=== PATIENT | male | born 1995 | race Two or more races ===

== ENCOUNTER 2023-06-08 09:56 | Emergency (ER) | payer SELFPAY ==
[~2023-06-08] VITALS: Ht 188 cm; Wt 97.4 kg
[2023-06-08 10:27] LABS: Basophils # (auto) 0 10 ^3/uL (0-0.2); Basophils % (auto) 0.4 % (0.0-2.0); Eosinophils # (auto) 0 10 ^3/uL (0-0.8); Eosinophils % (auto) 0.1 % (0.0-7.0); Hematocrit 49.4 % (41.0-53.0); Hemoglobin 17.2 g/dL (13.5-17.5); Lymphocytes # (auto) 0.9 10 ^3/uL (0.4-5.4); Lymphocytes % (auto) 7.2 % (10.0-50.0); Mean Corpuscular Hgb Conc. 34.7 g/dL (32.0-36.0); Mean Corpuscular Volume 92.2 fL (80.0-100.0); Monocytes # (auto) 0.5 10 ^3/uL (0-1.3); Monocytes % (auto) 4.1 % (0.0-12.0); Neutrophils # (auto) 11.4 10 ^3/uL (1.6-8.6); Neutrophils % (auto) 88.2 % (37.0-80.0); Nucleated Red Blood Cells % 0.1 %; Red Blood Cells 5.37 10^6/uL (4.5-5.90)
[2023-06-08 10:42] VITALS: BP 125/78; PULSE 59; RESP 17; TEMP 97.9; O2SAT 99
[2023-06-08 10:42] LABS: Alanine Aminotransferase 36 U/L (7-40); Albumin 5.2 g/dL (3.2-4.8); Alkaline Phosphatase 70 U/L (46-116); Anion Gap 8 (5-15); Aspartate Aminotransferase 25 U/L (13-40); BUN/Creatinine Ratio 11.4 (10.0-20.0); Bilirubin, Total 1.3 mg/dL (0.2-1.0); Blood Urea Nitrogen 10 mg/dL (9-23); Calcium 10.3 mg/dL (8.7-10.4); Carbon Dioxide 25 mmol/L (20-30); Chloride 106 mmol/L (98-107); Glucose 135 mg/dL (74-106); Potassium 3.6 mmol/L (3.5-5.1); Sodium 139 mmol/L (136-145)
[2023-06-08] MEDS ORDERED: PANTOPRAZOLE 40 MG/10 ML VIAL INJ IV ONE (10:45)
[2023-06-08] MEDS ORDERED: SODIUM CHLORIDE 0.9% 1,000 ML IVB ONE (10:45)
[2023-06-08] MEDS ORDERED: PROCHLORPERAZINE EDISYLATE 5 MG/ML 2ML VIAL IV ONE (10:45)
[2023-06-08] MEDS ORDERED: ZOFR4T PO (12:15)
[2023-06-08] MEDS ORDERED: PANT40TA2 PO (12:15)
== END 2023-06-08 12:22 | disposition home or self-care (01) ==
LOC: ER 09:56
DX: R11.2 Nausea with vomiting, unspecified (principal)
CPT/HCPCS: 36415; 74176; 80053; 83690; 85025; 96361; 96374; 96375; 99285; C9113; J0780; J7030

== ENCOUNTER 2024-12-13 13:15 | Emergency (ER) | payer BC ==
[~2024-12-13] VITALS: Ht 188 cm; Wt 84.1 kg
[~2024-12-13 13:15] MED LIST: PANT40TA2 PO; ZOFR4T PO
--- NOTE | 2024-12-13 13:30 | ED.PDOC ---
HPI Comments 29 year old male presents to the ED with a chief complaint of chest pain onset 2 days. Patient states he began experiencing LT sided chest pain two days ago, yesterday experienced nausea/vomiting which resolved today. Patient also noticed shortness of breath, chest pain worsens with deep breaths. Patient took pre- workout on Thursday, has not since. Denies any PMHx as well as headache, dizziness, abdominal pain, dysuria, hematuria, fever, chills. No other symptoms or modifying factors present at this time. Chief Complaint: Chest Pain Time Seen by MD: 13:22 Primary Care Provider: NONE Reviewed Notes: Medications, Allergies Allergies: Coded Allergies: No Known Drug Allergy (Verified Allergy, Unknown, 06/08/23) Home Meds Active Scripts Pantoprazole Sodium Sesquihydr (Protonix) 40 Mg Tab, 40 MG PO DAILY, #30 TAB Prov:REA CALDERON MD 06/08/23 Ondansetron Odt 4MG Tab (ZOFRAN PO) 4 Mg Tb, 4 MG PO Q8HP PRN for 5 Days, #15 TAB ODT TAB-DISSOLVE IN MOUTH, THEN SWALLOW Prov:REA CALDERON MD 06/08/23 Information Source: Patient Mode of Arrival: Ambulatory Severity: Moderate Timing: Days Duration: Since onset Prehospital treatment: None Location: Chest (L) Radiation: No Radiation Quality: Sharp, Pressure Onset: At Rest Cardiac Risk Factors: None PE Risk Factors: None History of: None Modifying Factors: Nothing Associated Signs and Symptoms: SOB, N/V Past Medical History PAST MEDICAL HISTORY: Denies Surgical History: Denies all surgeries Family History Family History: Reviewed,noncontributory to illness Social History Smoker: Non-Smoker Alcohol: Denies ETOH Use Drugs: Denies Drug Use Lives In: Home Constitutional: denies: chills, diaphoresis, fatigue, fever, malaise, sweats, weakness, others EENTM: denies: blurred vision, double vision, ear bleeding, ear discharge, ear drainage, ear pain, ear ringing, eye pain, eye redness, hearing loss, mouth pain, mouth swelling, nasal discharge, nose bleeding, nose congestion, nose pain, photophobia, tearing, throat pain, throat swelling, voice changes, others Respiratory: reports: shortness of breath; denies: cough, hemoptysis, orthopnea, SOB at rest, SOB with excertion, stridor, wheezing, others Cardiovascular: reports: chest pain; denies: dizzy spells, diaphoresis, Dyspnea on exertion, edema, irregular heart beat, left arm pain, lightheadedness, palpitations, PND, syncope, others Gastrointestinal: reports: nausea, vomiting; denies: abdomen distended, abdominal pain, blood streaked bowels, constipated, diarrhea, dysphagia, difficulty swallowing, hematemesis, melena, poor appetite, poor fluid intake, rectal bleeding, rectal pain, others Genitourinary: denies: burning, dysuria, flank pain, frequency, hematuria, incontinence, penile discharge, penile sore, pain, testicle pain, testicle swelling, urgency, others Neurological: denies: dizziness, fainting, headache, left sided numbness, left sided weakness, numbness, paresthesia, pre-existing deficit, right sided numbness, right sided weakness, seizure, speech problems, tingling, tremors, weakness, others Musculoskeletal: denies: back pain, gout, joint pain, joint swelling, muscle pain, muscle stiffness, neck pain, others Integumetry: denies: bruises, change in color, change in hair/nails, dryness, laceration, lesions, lumps, rash, wounds, others Allergic/Immunocompromised: denies: Difficulty Healing, Frequent Infections, Hives, Itching, others Hematologic/Lymphatic: denies: anemia, blood clots, easy bleeding, easy bruisi ng, swollen glands, others Endocrine: denies: excessive hunger, excessive sweating, excessive thirst, exce ssive urination, flushing, intolerance to cold, intolerance to heat, unexplained weight gain, unexplained weight loss, others Psychiatric: denies: anxiety, bipolar disorder, depression, hopeless, panic disorder, schizophrenia, sleepless, suicidal, others All Other Systems: Reviewed and Negative Physical Exam General Appearance: No Apparent Distress, Normal HEENT: Normal ENT Inspection, Pharynx Normal, TMs Normal Neck: Full Range of Motion, Non-Tender, Normal, Normal Inspection Respiratory: Chest Non-Tender, Lungs Clear, No Accessory Muscle Use, No Respiratory Distress, Normal Breath Sounds Cardiovascular: No Edema, No JVD, No Murmur, No Gallop, Normal Peripheral Pulses, Regular Rate/Rhythm Breast Exam: Deferred Gastrointestinal: No Organomegaly, Non Tender, No Pulsatile Mass, Normal Bowel Sounds, Soft Genitalia: Deferred Pelvic: Deferred Rectal: Deferred Extremities: No calf tenderness, Normal capillary refill, Normal inspection, Normal range of motion, Non-tender, No pedal edema Musculoskeletal : Apperance: Normal Neurologic: Alert, transformer coil winder II-XII nml as Tested, No Motor Deficits, Normal Affect, Normal Mood, No Sensory Deficits Cerebellar Function: Normal Reflexes: Normal Skin: Dry, Normal Color, Warm Lymphatic: No Adenopathy Was a procedure done? Was a procedure done?: No CP Differential Dx Differential Diagnosis: DE, PAC's Differential Diagnosis: HTN Essential, HTN Accelerated Differential Diagnosis: Gastritis, Myocardial Infarction X-Ray, Labs, Meds, VS Vital Signs Date Time Temp Pulse Resp B/P (MAP) Pulse Ox O2 Delivery O2 Flow Rate FiO2 12/13/24 14:27 71 12/13/24 13:25 98.9 83 17 138/82 (100) 96 98.9 12/13/24 13:20 83 Lab Test 12/13/24 16:22 12/13/24 14:16 12/13/24 13:23 Range/Units Troponin I High Sensitivity Pending 6 6 </=54 ng/L White Blood Count 11.4 H 4.4-10.8 10^3/uL Red Blood Count 5.25 4.5-5.90 10^6/uL Hemoglobin 16.5 13.5-17.5 g/dL Hematocrit 49.7 41.0-53.0 % Mean Corpuscular Volume 94.6 80.0-100.0 fL Mean Corpuscular Hemoglobin 31.5 28.0-32.0 pg Mean Corpuscular Hemoglobin Concent 33.3 32.0-36.0 g/dL Red Cell Distribution Width 13.5 11.8-14.3 % Platelet Count 312 140-450 10^3/uL Mean Platelet Volume 7.9 6.9-10.8 fL Neutrophils (%) (Auto) 77.8 37.0-80.0 % Lymphocytes (%) (Auto) 14.0 10.0-50.0 % Monocytes (%) (Auto) 7.7 0.0-12.0 % Eosinophils (%) (Auto) 0.3 0.0-7.0 % Basophils (%) (Auto) 0.2 0.0-2.0 % Neutrophils # (Auto) 8.9 H 1.6-8.6 10 ^3/uL Lymphocytes # (Auto) 1.6 0.4-5.4 10 ^3/uL Monocytes # (Auto) 0.9 0-1.3 10 ^3/uL Eosinophils # (Auto) 0 0-0.8 10 ^3/uL Basophils # (Auto) 0 0-0.2 10 ^3/uL Nucleated Red Blood Cells 0.1 % Sodium Level 136 136-145 mmol/L Potassium Level 3.5 3.5-5.1 mmol/L Chloride Level 103 98-107 mmol/L Carbon Dioxide Level 23 20-31 mmol/L Anion Gap 10 5-15 Blood Urea Nitrogen 18 9-23 mg/dL Creatinine 1.00 0.700-1.30 mg/dL Glomerular Filtration Rate Calc 106 >90 mL/min BUN/Creatinine Ratio 18.0 10.0-20.0 Serum Glucose 85 74-106 mg/dL Calcium Level 9.1 8.7-10.4 mg/dL Time of 1ST Reevaluation: 13:55 Reevaluation 1ST: Unchanged Patient Education/Counseling: Diagnosis, Treatment, Prognosis Family Education/Counseling: No Family Present Additional Information The following tests were ordered, and results were reviewed by me: TROP -x3, EKG -x3 I discussed treatment and results with medical personnel and: Patient Comprehensive systems review obtained and negative except for what is stated in the HPI. Departure 1 Departure Time of Disposition: 16:53 (Patient presented with chest pain that was concerning for possible STEMI, ACS, PE, Pneumonia, Muscle Strain, COPD, Dissection. Data: 1. I ordered and reviewed the result of at least 3 labs including a CBC, BMP, and Troponin. 2. I independently interpreted the following tests: EKG which shows normal sinus rhythm and Chest X-ray which shows a benign chest.Risk:This patient presented with a high risk of morbidity due to further diagnostic testing or treatment and may suffer from an acute cardiac or respiratory disorder. After review of all the data patient is unlikely to have a pe , dissection, and is low risk for acs. Patient is stable at this time.Workup so far is benign and patient will be discharged with outpatient followup. ) Impression: Primary Impression: Acute chest pain Disposition: 01 HOME / SELF CARE / HOMELESS Condition: Stable Additional Instructions: You presented today with chest pain. Your workup today was benign including labs, troponin, EKG, chest x-ray. Your pain may be from musculoskeletal strain, acid reflux, anxiety, or many other factors. It is important to follow up with your regular doctor within 1 week. If your symptoms worsen or you have any other concerns please return to the emergency room. Discharged With: Self Critical Care Note Critical Care Time?: No Stability Stability form required: No Heart Score Heart Score: Heart Score Response (Comments) Value History Slightly Suspicious 0 EKG Normal 0 Age <45 0 Risk Factors No known risk factors 0 Troponin Normal limit 0 Total 0 I personally scribed for BRANT DELUNA MD ([email or web address]) on 12/13/24 at 13:30. Electronically submitted by Tricia Dominguez ([email or web address]). I personally scribed for BRANT DELUNA MD ([email or web address]) on 12/13/24 at 13:33. Electronically submitted by Tricia Dominguez ([email or web address]). BRANT DELUNA MD Dec 13, 2024 13:30
--- NOTE | 2024-12-13 14:12 | DVH ---
EXAM: XY CHEST PORTABLE TECHNIQUE: Single frontal chest radiograph CLINICAL HISTORY: chest pain COMPARISON: None Findings/Impression: Frontal chest radiograph demonstrates no acute osseous or superficial soft tissue abnormalities. The trachea is midline. The cardiac silhouette and mediastinum are within normal limits. No pneumothorax, pleural effusions, or consolidations.
--- NOTE | 2024-12-13 14:15 | ECG ---
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
[2024-12-13 14:59] LABS: Chloride 103 mmol/L (98-107); Sodium 136 mmol/L (136-145)
[2024-12-13 15:00] LABS: Anion Gap 10 (5-15); Carbon Dioxide 23 mmol/L (20-31)
[2024-12-13 15:01] LABS: Calcium 9.1 mg/dL (8.7-10.4); Potassium 3.5 mmol/L (3.5-5.1)
[2024-12-13 15:02] LABS: Basophils # (auto) 0 10 ^3/uL (0-0.2); Basophils % (auto) 0.2 % (0.0-2.0); Eosinophils # (auto) 0 10 ^3/uL (0-0.8); Eosinophils % (auto) 0.3 % (0.0-7.0); Hematocrit 49.7 % (41.0-53.0); Hemoglobin 16.5 g/dL (13.5-17.5); Lymphocytes # (auto) 1.6 10 ^3/uL (0.4-5.4); Mean Corpuscular Hemoglobin 31.5 pg (28.0-32.0); Mean Corpuscular Hgb Conc. 33.3 g/dL (32.0-36.0); Mean Corpuscular Volume 94.6 fL (80.0-100.0); Monocytes # (auto) 0.9 10 ^3/uL (0-1.3); Monocytes % (auto) 7.7 % (0.0-12.0); Neutrophils # (auto) 8.9 10 ^3/uL (1.6-8.6); Neutrophils % (auto) 77.8 % (37.0-80.0); Nucleated Red Blood Cells % 0.1 %; Platelet Count (auto) 312 10^3/uL (140-450); Red Blood Cells 5.25 10^6/uL (4.5-5.90); Red Cell Distribution Width 13.5 % (11.8-14.3); White Blood Cell 11.4 10^3/uL (4.4-10.8)
[2024-12-13 15:05] LABS: Blood Urea Nitrogen 18 mg/dL (9-23); Glucose 85 mg/dL (74-106)
[2024-12-13 16:57] VITALS: BP 133/78; TEMP 97.9
[2024-12-13 17:14] VITALS: PULSE 83; RESP 17; O2SAT 96
--- NOTE | 2024-12-13 19:01 | ECG ---
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
== END 2024-12-13 17:14 | disposition home or self-care (01) ==
LOC: ER 13:15
DX: R07.89 Other chest pain (principal); R11.2 Nausea with vomiting, unspecified; R06.02 Shortness of breath; Z79.899 Other long term (current) drug therapy
CPT/HCPCS: 36415; 71045; 80048; 84484; 85025; 93005

== ENCOUNTER 2024-12-14 05:20 | Inpatient (IN) | payer BC ==
[~2024-12-14] VITALS: Ht 188 cm; Wt 85.2 kg
[2024-12-14] MEDS ORDERED: ASPirin 81 mg TAB PO ONE (05:30)
[2024-12-14 05:59] LABS: Basophils # (auto) 0.1 10 ^3/uL (0-0.2); Eosinophils # (auto) 0.1 10 ^3/uL (0-0.8); Eosinophils % (auto) 0.8 % (0.0-7.0); Hematocrit 47.8 % (41.0-53.0); Lymphocytes # (auto) 1.6 10 ^3/uL (0.4-5.4); Lymphocytes % (auto) 21.8 % (10.0-50.0); Mean Corpuscular Hemoglobin 33.3 pg (28.0-32.0); Mean Corpuscular Hgb Conc. 35.6 g/dL (32.0-36.0); Mean Corpuscular Volume 93.8 fL (80.0-100.0); Monocytes # (auto) 0.6 10 ^3/uL (0-1.3); Monocytes % (auto) 8.9 % (0.0-12.0); Neutrophils # (auto) 4.9 10 ^3/uL (1.6-8.6); Neutrophils % (auto) 67.5 % (37.0-80.0); Nucleated Red Blood Cells % 0.1 %; Platelet Count (auto) 313 10^3/uL (140-450); Red Cell Distribution Width 13.7 % (11.8-14.3); White Blood Cell 7.2 10^3/uL (4.4-10.8)
[2024-12-14 06:18] LABS: Albumin 4.6 g/dL (3.2-4.8); Alkaline Phosphatase 62 U/L (46-116); Anion Gap 7 (5-15); Aspartate Aminotransferase 31 U/L (13-40); BUN/Creatinine Ratio 17.4 (10.0-20.0); Bilirubin, Total 0.8 mg/dL (0.2-1.0); Blood Urea Nitrogen 16 mg/dL (9-23); Calcium 9.2 mg/dL (8.7-10.4); Carbon Dioxide 24 mmol/L (20-31); Chloride 105 mmol/L (98-107); Glucose 99 mg/dL (74-106); Potassium 3.9 mmol/L (3.5-5.1); Sodium 136 mmol/L (136-145); Total Protein 7.3 g/dL (5.7-8.2)
--- NOTE | 2024-12-14 06:27 | ED.PDOC ---
History of Present Illness HPI Comments 29M presents to the Er w/ no prior Hx except for coming into the ER for the same symptoms of left sided CP during inhalation. Pt reports on having sharp left sided CP since Thursday of 12/11/24 and was in the ER of [facility] yesterday. Pt reports that the pain went away yesterday and informed the pt, if the pain ever comes back, to come back to the ER. The HPI of yesterday is "29 year old male presents to the ED with a chief complaint of chest pain onset 2 days. Patient states he began experiencing LT sided chest pain two days ago, yesterday experienced nausea/vomiting which resolved today. Patient also noticed shortness of breath, chest pain worsens with deep breaths. Patient took pre-workout on Thursday, has not since. Denies any PMHx as well as headache, dizziness, abdominal pain, dysuria, hematuria, fever, chills. No other symptoms or modifying factors present at this time." Pt denies chills, fever, N/V/D, or no other associated symptoms, modifiers, recent injuries or sick contacts at this time. Chief Complaint: Chest Pain Time Seen by MD: 06:20 Primary Care Provider: NONE Reviewed Notes: Nurses Notes, Medications, Allergies Allergies: Coded Allergies: No Known Drug Allergy (Verified Allergy, Unknown, 06/08/23) Home Meds Active Scripts Pantoprazole Sodium Sesquihydr (Protonix) 40 Mg Tab, 40 MG PO DAILY, #30 TAB Prov:REA CALDERON MD 06/08/23 Ondansetron Odt 4MG Tab (ZOFRAN PO) 4 Mg Tb, 4 MG PO Q8HP PRN for 5 Days, #15 TAB ODT TAB-DISSOLVE IN MOUTH, THEN SWALLOW Prov:REA CALDERON MD 06/08/23 Information Source: Patient Mode of Arrival: Ambulatory Severity: Moderate Timing: Days Duration: Since onset, Days Prehospital treatment: None Past Medical History PAST MEDICAL HISTORY: Denies Surgical History: Denies all surgeries Family History Family History: Reviewed,noncontributory to illness, Unknown Social History Smoker: Non-Smoker Alcohol: Denies ETOH Use Drugs: Denies Drug Use Lives In: Home Constitutional: denies: chills, diaphoresis, fatigue, fever, malaise, sweats, weakness, others EENTM: denies: blurred vision, double vision, ear bleeding, ear discharge, ear drainage, ear pain, ear ringing, eye pain, eye redness, hearing loss, mouth pain, mouth swelling, nasal discharge, nose bleeding, nose congestion, nose pain, photophobia, tearing, throat pain, throat swelling, voice changes, others Respiratory: denies: cough, hemoptysis, orthopnea, SOB at rest, shortness of breath, SOB with excertion, stridor, wheezing, others Cardiovascular: reports: chest pain; denies: dizzy spells, diaphoresis, Dyspnea on exertion, edema, irregular heart beat, left arm pain, lightheadedness, palpitations, PND, syncope, others Gastrointestinal: denies: abdomen distended, abdominal pain, blood streaked bowels, constipated, diarrhea, dysphagia, difficulty swallowing, hematemesis, melena, nausea, poor appetite, poor fluid intake, rectal bleeding, rectal pain, vomiting, others Genitourinary: denies: burning, dysuria, flank pain, frequency, hematuria, incontinence, penile discharge, penile sore, pain, testicle pain, testicle swelling, urgency, others Neurological: denies: dizziness, fainting, headache, left sided numbness, left sided weakness, numbness, paresthesia, pre-existing deficit, right sided numbnes s, right sided weakness, seizure, speech problems, tingling, tremors, weakness, others Musculoskeletal: denies: back pain, gout, joint pain, joint swelling, muscle pain, muscle stiffness, neck pain, others Integumetry: denies: bruises, change in color, change in hair/nails, dryness, laceration, lesions, lumps, rash, wounds, others Allergic/Immunocompromised: denies: Difficulty Healing, Frequent Infections, Hives, Itching, others Hematologic/Lymphatic: denies: anemia, blood clots, easy bleeding, easy bruising, swollen glands, others Endocrine: denies: excessive hunger, excessive sweating, excessive thirst, excessive urination, flushing, intolerance to cold, intolerance to heat, unexplained weight gain, unexplained weight loss, others Psychiatric: denies: anxiety, bipolar disorder, depression, hopeless, panic disorder, schizophrenia, sleepless, suicidal, others All Other Systems: Reviewed and Negative Physical Exam General Appearance: Moderate Distress, Normal HEENT: Normal ENT Inspection, Pharynx Normal, TMs Normal Neck: Full Range of Motion, Non-Tender, Normal, Normal Inspection Respiratory: Chest Non-Tender, Lungs Clear, No Accessory Muscle Use, No Respiratory Distress, Normal Breath Sounds Cardiovascular: No Edema, No JVD, No Murmur, No Gallop, Normal Peripheral Pulses, Regular Rate/Rhythm Breast Exam: Deferred Gastrointestinal: No Organomegaly, Non Tender, No Pulsatile Mass, Normal Bowel Sounds, Soft Genitalia: Deferred Pelvic: Deferred Rectal: Deferred Extremities: No calf tenderness, Normal capillary refill, Normal inspection, Normal range of motion, Non-tender, No pedal edema Musculoskeletal : Apperance: Normal Neurologic: Alert, patient attendant II-XII nml as Tested, No Motor Deficits, Normal Affect, Normal Mood, No Sensory Deficits Cerebellar Function: Normal Reflexes: Normal Skin: Dry, Normal Color, Warm Peripheral Pulses: 3+ Radial (R), 3+ Radial (L) Lymphatic: No Adenopathy Was a procedure done? Was a procedure done?: No Differential Dx Considerations may include: Chest pain Electrolyte imbalance X-Ray, Labs, Meds, VS Vital Signs Date Time Temp Pulse Resp B/P (MAP) Pulse Ox O2 Delivery O2 Flow Rate FiO2 12/14/24 05:26 63 12/14/24 05:25 97.7 68 18 135/63 (87) 98 97.7 Lab Test 12/14/24 07:27 12/14/24 05:34 Range/Units Troponin I High Sensitivity Pending 6 </=54 ng/L White Blood Count 7.2 # 4.4-10.8 10^3/uL Red Blood Count 5.10 4.5-5.90 10^6/uL Hemoglobin 17.0 13.5-17.5 g/dL Hematocrit 47.8 41.0-53.0 % Mean Corpuscular Volume 93.8 80.0-100.0 fL Mean Corpuscular Hemoglobin 33.3 H 28.0-32.0 pg Mean Corpuscular Hemoglobin Concent 35.6 32.0-36.0 g/dL Red Cell Distribution Width 13.7 11.8-14.3 % Platelet Count 313 140-450 10^3/uL Mean Platelet Volume 7.7 6.9-10.8 fL Neutrophils (%) (Auto) 67.5 37.0-80.0 % Lymphocytes (%) (Auto) 21.8 10.0-50.0 % Monocytes (%) (Auto) 8.9 0.0-12.0 % Eosinophils (%) (Auto) 0.8 0.0-7.0 % Basophils (%) (Auto) 1.0 0.0-2.0 % Neutrophils # (Auto) 4.9 1.6-8.6 10 ^3/uL Lymphocytes # (Auto) 1.6 0.4-5.4 10 ^3/uL Monocytes # (Auto) 0.6 0-1.3 10 ^3/uL Eosinophils # (Auto) 0.1 0-0.8 10 ^3/uL Basophils # (Auto) 0.1 0-0.2 10 ^3/uL Nucleated Red Blood Cells 0.1 % D-Dimer, Quantitative 0.24 0.0-0.49 mg/L FEU Sodium Level 136 136-145 mmol/L Potassium Level 3.9 3.5-5.1 mmol/L Chloride Level 105 98-107 mmol/L Carbon Dioxide Level 24 20-31 mmol/L Anion Gap 7 5-15 Blood Urea Nitrogen 16 9-23 mg/dL Creatinine 0.92 0.700-1.30 mg/dL Glomerular Filtration Rate Calc 117 >90 mL/min BUN/Creatinine Ratio 17.4 10.0-20.0 Serum Glucose 99 74-106 mg/dL Calcium Level 9.2 8.7-10.4 mg/dL Total Bilirubin 0.8 0.2-1.0 mg/dL Aspartate Amino Transferase (AST) 31 13-40 U/L Alanine Aminotransferase (ALT) 52 H 7-40 U/L Alkaline Phosphatase 62 46-116 U/L B-Type Natriuretic Peptide 4.05 0-100 pg/mL Total Protein 7.3 5.7-8.2 g/dL Albumin 4.6 3.2-4.8 g/dL Patient alert. Complaining of chest pain. Chest pain mainly on deep inspiration. Vitals stable. Answering questions. Ambulating. EKG reviewed does not show any acute changes. Reviewed his previous visit. Possibly need echocardiogram. Possible pericarditis. Was given aspirin. Was given Motrin. Chest x-ray reviewed does not show any acute changes. Explained to the patient. Continue cardiac monitoring. EXAM: XR Chest, 1 View CLINICAL INDICATION: Chest pain TECHNIQUE: Frontal view of the chest. COMPARISON: XY CHEST PORTABLE on DOS: 12/13/24 FINDINGS: LUNGS AND PLEURAL SPACES: Unremarkable. No consolidation. No pneumothorax. HEART: Unremarkable. No cardiomegaly. MEDIASTINUM: Unremarkable. Normal mediastinal contour. BONES/JOINTS: Unremarkable. No acute fracture. OTHER FINDINGS: . None. IMPRESSION: No acute cardiopulmonary process. Time of 1ST Reevaluation: 06:50 Reevaluation 1ST: Unchanged Patient Education/Counseling: Diagnosis, Treatment, Prognosis Family Education/Counseling: No Family Present Departure 1 Departure Time of Disposition: 06:34 Impression: Primary Impression: Chest pain of unknown etiology Disposition: ADMITTED INPATIENT Admit to: Med Surg Condition: Guarded Critical Care Note Critical Care Time?: No Stability Stability form required: No Heart Score Heart Score: Heart Score Response (Comments) Value History Slightly Suspicious 0 EKG Normal 0 Age <45 0 Risk Factors No known risk factors 0 Troponin Normal limit 0 Total 0 I personally scribed for JAYLAN ECHOLS MD ([email or web address]) on 12/14/24 at 06:27. Electronically submitted by Bobby Larose ([email or web address]). I personally scribed for JAYLAN ECHOLS MD ([email or web address]) on 12/14/24 at 07:35. Electronically submitted by Bobby Larose ([email or web address]). JAYLAN ECHOLS MD Dec 14, 2024 06:27
[2024-12-14 06:39] LABS: Alanine Aminotransferase 52 U/L (7-40)
--- NOTE | 2024-12-14 07:27 | DVH ---
EXAM: XR Chest, 1 View CLINICAL INDICATION: Chest pain TECHNIQUE: Frontal view of the chest. COMPARISON: XY CHEST PORTABLE on DOS: 12/13/24 FINDINGS: LUNGS AND PLEURAL SPACES: Unremarkable. No consolidation. No pneumothorax. HEART: Unremarkable. No cardiomegaly. MEDIASTINUM: Unremarkable. Normal mediastinal contour. BONES/JOINTS: Unremarkable. No acute fracture. OTHER FINDINGS: . None. IMPRESSION: No acute cardiopulmonary process.
[2024-12-14] MEDS: IBUPROFEN 800 MG TAB PO ONE (08:51)
--- NOTE | 2024-12-14 10:41 | DVHHP2 ---
History of Present Illness Reason for Visit: Chest pain History of Present Illness Adam Lindsey is a 29-year-old male with no past medical history who reports to the ED with chest pain and with nausea and vomiting x4 days. 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 He states that the pain is 5/10 constant and worse with breathing or coughing. He states that sleeping makes it better. Patient denies any use of drugs, alcohol, or smoking. He denies any recent illnesses, recent sick contacts, recent trauma or injury, fever, chills, lightheadedness, weakness, dizziness, shortness of breath, diarrhea, abdominal pain, or urinary symptoms. Past Surgical History: None Family History: None Smoke: No ALCOHOL: none Drugs: None Lives: with Family Domestic Violence: Neg Review of Systems Cardiovascular: Chest Pain Gastrointestinal: Nausea, Vomiting Allergies: Coded Allergies: No Known Drug Allergy (Verified Allergy, Unknown, 06/08/23) Medications Current Medications Medications Dose Ordered Sig/Kenyatta Route Start Time Stop Time Status Last Admin Dose Admin Aspirin 81 mg DAILY PO 12/15/24 10:00 UNV Atorvastatin Calcium 40 mg HS PO 12/14/24 22:00 UNV Morphine Sulfate 2 mg Q30MP PRN IV 12/14/24 10:45 UNV Acetaminophen 650 mg Q6HP PRN PO 12/14/24 10:45 UNV Nitroglycerin 0.4 mg Q5MINP PRN SL 12/14/24 10:45 UNV Ondansetron HCl 4 mg Q4HP PRN IV 12/14/24 10:45 UNV Nitroglycerin 0.4 mg Q5MINP PRN SL 12/14/24 10:45 UNV Morphine Sulfate 2 mg Q30M PRN IV 12/14/24 10:45 UNV Exam Vital Signs Vital Signs Date Time Temp Pulse Resp B/P (MAP) Pulse Ox O2 Delivery O2 Flow Rate FiO2 12/14/24 08:51 98.1 12/14/24 08:31 58 12/14/24 08:31 16 160/66 (97) 98 General Appearance: Alert, Oriented X3, Cooperative, No acute distress HEENT: Atraumatic, PERRLA, EOMI, Mucous membr. moist/pink Respiratory: Clear to auscultation, Normal air movement Cardiovascular: Normal S1, Normal S2, No murmurs Abdominal: Normal bowel sounds, Soft, No tenderness, No hepatospenomegaly, No masses Extremities: No clubbing, No cyanosis, No edema, Normal pulses, No tenderness/swelling Skin: No rashes, No breakdown, No significant lesion Neuro: Normal gait, Normal speech, Strength at 5/5 X4 ext, Normal tone, Sensation intact Psych/Mental Status: Mental status NL, Mood NL Labs/Xrays Labs Test 12/14/24 08:08 12/14/24 05:34 Range/Units Troponin I High Sensitivity 5 </=54 ng/L White Blood Count 7.2 # 4.4-10.8 10^3/uL Red Blood Count 5.10 4.5-5.90 10^6/uL Hemoglobin 17.0 13.5-17.5 g/dL Hematocrit 47.8 41.0-53.0 % Mean Corpuscular Volume 93.8 80.0-100.0 fL Mean Corpuscular Hemoglobin 33.3 H 28.0-32.0 pg Mean Corpuscular Hemoglobin Concent 35.6 32.0-36.0 g/dL Red Cell Distribution Width 13.7 11.8-14.3 % Platelet Count 313 140-450 10^3/uL Mean Platelet Volume 7.7 6.9-10.8 fL Neutrophils (%) (Auto) 67.5 37.0-80.0 % Lymphocytes (%) (Auto) 21.8 10.0-50.0 % Monocytes (%) (Auto) 8.9 0.0-12.0 % Eosinophils (%) (Auto) 0.8 0.0-7.0 % Basophils (%) (Auto) 1.0 0.0-2.0 % Neutrophils # (Auto) 4.9 1.6-8.6 10 ^3/uL Lymphocytes # (Auto) 1.6 0.4-5.4 10 ^3/uL Monocytes # (Auto) 0.6 0-1.3 10 ^3/uL Eosinophils # (Auto) 0.1 0-0.8 10 ^3/uL Basophils # (Auto) 0.1 0-0.2 10 ^3/uL Nucleated Red Blood Cells 0.1 % D-Dimer, Quantitative 0.24 0.0-0.49 mg/L FEU Sodium Level 136 136-145 mmol/L Potassium Level 3.9 3.5-5.1 mmol/L Chloride Level 105 98-107 mmol/L Carbon Dioxide Level 24 20-31 mmol/L Anion Gap 7 5-15 Blood Urea Nitrogen 16 9-23 mg/dL Creatinine 0.92 0.700-1.30 mg/dL Glomerular Filtration Rate Calc 117 >90 mL/min BUN/Creatinine Ratio 17.4 10.0-20.0 Serum Glucose 99 74-106 mg/dL Calcium Level 9.2 8.7-10.4 mg/dL Total Bilirubin 0.8 0.2-1.0 mg/dL Aspartate Amino Transferase (AST) 31 13-40 U/L Alanine Aminotransferase (ALT) 52 H 7-40 U/L Alkaline Phosphatase 62 46-116 U/L B-Type Natriuretic Peptide 4.05 0-100 pg/mL Total Protein 7.3 5.7-8.2 g/dL Albumin 4.6 3.2-4.8 g/dL EXAM: XR Chest, 1 View CLINICAL INDICATION: Chest pain TECHNIQUE: Frontal view of the chest. COMPARISON: XY CHEST PORTABLE on DOS: 12/13/24 FINDINGS: LUNGS AND PLEURAL SPACES: Unremarkable. No consolidation. No pneumothorax. HEART: Unremarkable. No cardiomegaly. MEDIASTINUM: Unremarkable. Normal mediastinal contour. BONES/JOINTS: Unremarkable. No acute fracture. OTHER FINDINGS: . None. IMPRESSION: No acute cardiopulmonary process. Assessment/Plan Assessment/Plan Assessment Chest pain probable costochondritis Intractable nausea and vomiting Sinus bradycardia Plan Admit to tele Antiemetics Pain management D-dimer Chest x-ray noted BNP EKG Troponin negative x3 Aspirin Statin Echo ordered UA UDS A1c TSH Lipid panel Cardiology consult Per patient reports that he does not take any medications DVT prophylaxis-not indicated patient ambulating PUD prophylaxis-not indicated no history of GERD or GI bleed Discussed plan of care with patient and nurse Plan discussed with: Patient My Orders Orders - RAJAN ROQUE Procedure Category Date Status Time Admit ADMIT 12/14/24 Transmitted 10:33 Code Status CODE 12/14/24 Transmitted 10:33 Vital Signs TIM 12/14/24 In Process 10:33 Wet Process Head Miller TIM 12/14/24 In Process 10:33 Cardiac DIET 12/14/24 Transmitted Diet-2gna,Lofat,Lochol Lunch Aspirin Tablet PHA 12/15/24 Logged 10:00 Atorvastatin (Lipitor) PHA 12/14/24 Logged 22:00 Morphine Sulfate PHA 12/14/24 Logged Injection 10:45 Acetaminophen Tablet PHA 12/14/24 Logged (Tylenol Tablet) 10:45 Complete Blood Count LAB 12/15/24 Verified 04:00 Basic Metabolic Panel LAB 12/15/24 Verified 04:00 Magnesium LAB 12/15/24 Verified 04:00 Echo 2d Mode Cardiac US 12/14/24 Logged DOP 10:33 Nitroglycerin PHA 12/14/24 Logged Sublingual (Ntrostat 10:45 Ondansetron Hcl PHA 12/14/24 Logged (Zofran) 10:45 Electrocardigram EKG 12/15/24 Logged 04:00 Troponin-I Hs LAB 12/14/24 Logged 10:33 Cardiac TIM 12/14/24 In Process Rehabilitation - Outpa Nitroglycerin PHA 12/14/24 Logged Sublingual (Ntrostat 10:45 Morphine Sulfate PHA 12/14/24 Logged Injection 10:45 Stat Ekg For Chest TIM 12/14/24 In Process Pain 10:33 Notify Md Of Changes TIM 12/14/24 In Process From Base 10:33 Pump Stitcher For TIM 12/14/24 In Process 24 Hours 10:33 Emergency Dysrhythmia TIM 12/14/24 In Process Protocol 10:33 Rhythm Strips Once TIM 12/14/24 In Process Every Shift 10:33 Oxygen By Nasal RT 12/14/24 Transmitted Cannula 10:33 * Cardiology Consult CONS 12/14/24 Transmitted 10:33 Drug Screen LAB 12/14/24 Transmitted 10:35 Thyroid Stimulating LAB 12/14/24 Transmitted Hormone 10:35 Lipid Panel LAB 12/14/24 Transmitted 10:35 Hemoglobin A1c LAB 12/14/24 Transmitted 10:35 Date of Service: Dec 14, 2024 Billing Provider: RAJAN ROQUE Common Visit Codes: [id number] INP/OBS CARE (HIGH) RAJAN ROQUE Dec 14, 2024 10:41
[2024-12-14] MEDS ORDERED: NITROGLYCERIN 0.4 MG SL TAB SL PRN ×2 (10:45)
[2024-12-14] MEDS ORDERED: MORPHINE SULFATE INJ 2 MG/ml SYRG IV PRN (10:45)
[2024-12-14] MEDS ORDERED: MORPHINE SULFATE 4 MG/ML SYR/VIAL IV PRN (10:45)
[2024-12-14] MEDS ORDERED: ONDANSETRON HCL 4 MG/2 ML VIAL IV PRN (10:45)
[2024-12-14 15:36] LABS: Triglycerides 85 mg/dL (< 150)
[2024-12-14 15:38] LABS: HDL Cholesterol 31 mg/dL (40-59)
[2024-12-14 15:39] LABS: LDL Cholesterol 197 mg/dL (< 100)
[2024-12-14 15:40] LABS: Cholesterol 227 mg/dL (< 200)
[2024-12-14 17:04] VITALS: BP 144/76; PULSE 67; RESP 17; TEMP 98.2; O2SAT 99
[2024-12-14 18:00] LABS: Urine Bacteria None Seen /hpf (None Seen)
[2024-12-14 18:56] LABS: Urine Blood Negative /uL (Negative); Urine Clarity Clear (Clear); Urine Color Yellow (Yellow); Urine Mucus FEW (None Seen); Urine Protein, UAD TRACE (Negative); Urine Specific Gravity 1.032 (1.001-1.035); Urine Squamous Epithelial Cell FEW /hpf (<5); Urine Urobilinogen Normal (Negative); Urine WBC 3 /HPF (0-3)
[2024-12-14] MEDS: ATORVASTATIN 20 MG TAB PO SCH (21:06)
[2024-12-14 21:10] VITALS: BP 147/84; PULSE 59; RESP 18; TEMP 98.5; O2SAT 99
[2024-12-15] VITALS (8 sets, daily range): BP systolic 120–144; BP diastolic 53–76; PULSE 51–72; RESP 14–20; TEMP 97.8–98.8; O2SAT 94–98
[2024-12-15] MEDS: ACETAMINOPHEN 325 MG TAB PO PRN (00:44)
--- NOTE | 2024-12-15 06:37 | ECG ---
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
[2024-12-15 07:10] LABS: Basophils # (auto) 0 10 ^3/uL (0-0.2); Basophils % (auto) 0.5 % (0.0-2.0); Eosinophils # (auto) 0 10 ^3/uL (0-0.8); Eosinophils % (auto) 0.7 % (0.0-7.0); Hematocrit 47.4 % (41.0-53.0); Hemoglobin 16.3 g/dL (13.5-17.5); Lymphocytes # (auto) 1.5 10 ^3/uL (0.4-5.4); Mean Corpuscular Hemoglobin 32.1 pg (28.0-32.0); Mean Corpuscular Hgb Conc. 34.3 g/dL (32.0-36.0); Mean Corpuscular Volume 93.5 fL (80.0-100.0); Monocytes # (auto) 0.7 10 ^3/uL (0-1.3); Monocytes % (auto) 10.8 % (0.0-12.0); Neutrophils # (auto) 4.5 10 ^3/uL (1.6-8.6); Nucleated Red Blood Cells % 0.2 %; Platelet Count (auto) 305 10^3/uL (140-450); Red Blood Cells 5.07 10^6/uL (4.5-5.90); Red Cell Distribution Width 13.3 % (11.8-14.3); White Blood Cell 6.8 10^3/uL (4.4-10.8)
[2024-12-15 07:17] LABS: Anion Gap 8 (5-15); Carbon Dioxide 25 mmol/L (20-31); Chloride 103 mmol/L (98-107); Potassium 4.1 mmol/L (3.5-5.1); Sodium 136 mmol/L (136-145)
[2024-12-15 07:18] LABS: Calcium 8.8 mg/dL (8.7-10.4)
[2024-12-15 07:23] LABS: BUN/Creatinine Ratio 13.7 (10.0-20.0); Blood Urea Nitrogen 14 mg/dL (9-23); Glucose 96 mg/dL (74-106)
[2024-12-15] MEDS: ASPirin 81 mg TAB PO SCH (10:19)
--- NOTE | 2024-12-15 13:25 | DVHPN2 ---
Subjective Patient complains of persistent sharp chest pain Reviewed: Care Plan, H&P, Labs, Medications, Previous Orders, Radiology Changes from previous H/P or p: No Changes General: Per HPI Cardiovascular: Chest Pain Gastrointestinal: Nausea, Vomiting Objective Vitals Vital Signs Date Time Temp Pulse Resp B/P (MAP) Pulse Ox O2 Delivery O2 Flow Rate FiO2 12/15/24 08:50 97.9 69 18 120/62 (81) 98 97.9 12/15/24 08:00 Room Air* 0 21 Intake/Output Intake and Output 12/15/24 07:00 Intake Total 241 ml Balance 241 ml Intake Oral 241 ml # Voids 1 General Appearance: Alert, Oriented X3, Cooperative, No acute distress HEENT: Atraumatic, PERRLA Lungs: Clear to auscultation, Normal air movement Cardiovascular: Normal S1, Normal S2 Abdomen: Normal bowel sounds, Soft, No tenderness, No hepatospenomegaly, No masses Musculoskeletal: Normal sensory function, Normal motor function Skin: Dry, Intact Psych/Mental Status: Mental status NL, Mood NL Medications Current Medications Medications Dose Ordered Sig/Kenyatta Route Start Time Stop Time Status Last Admin Dose Admin Aspirin 81 mg DAILY PO 12/15/24 10:00 12/15/24 10:19 81 MG Atorvastatin Calcium 40 mg HS PO 12/14/24 22:00 12/14/24 21:06 40 MG Acetaminophen 650 mg Q6HP PRN PO 12/14/24 10:45 12/15/24 00:44 650 MG Ondansetron HCl 4 mg Q4HP PRN IV 12/14/24 10:45 Nitroglycerin 0.4 mg Q5MINP PRN SL 12/14/24 10:45 Morphine Sulfate 2 mg Q30M PRN IV 12/14/24 10:45 Laboratory Results Laboratory Tests 12/15/24 06:30 Chemistry Test 12/15/24 06:30 Calcium Level 8.8 mg/dL (8.7-10.4) Magnesium Level 2.0 mg/dL (1.6-2.6) Urinalysis Test 12/14/24 17:25 Urine Color Yellow (Yellow) Urine Clarity Clear (Clear) Urine pH 6.0 (5.0-9.0) Urine Specific [place] 1.032 (1.001-1.035) Urine Protein Trace (Negative) H Urine Ketones 1+ (Negative) H Urine Blood Negative /uL (Negative) Urine Nitrite Negative (Negative) Urine Bilirubin Negative (Negative) Urine Urobilinogen Normal mg/dL (Negative) Urine Leukocyte Esterase Negative /uL (Negative) Urine RBC 2 /hpf (0 - 3) Urine Microscopic WBC 3 /HPF (0-3) Urine Squamous Epithelial Cells Few /hpf (<5) Urine Bacteria None seen /hpf (None Seen) Urine Mucus Few (None Seen) Urine Glucose Normal mg/dL (Normal) Labs and/or images reviewed: Labs reviewed by me, Image(s) reviewed by me Assessment/Plan Assessment/Plan Impression: -chest pain, rule out ACS -dyslipidemia Plan: -cardiology consultation -echocardiogram -12 lead ECG reviewed -trial of IV Toradol for pain management -further course of treatment per Cardiology recommendations. Total time spent with patient discussing and formulating plan of care: 35 minutes. This medical document was created using an electronic medical record system with [employer] dictation system. Although this document has been carefully reviewed, there may still be some phonetic and typographical errors. These areas are purely typographical due to imperfections of the software programs, and do not reflect any compromise in the patient's medical care. Plan discussed with: Patient, Other (RN) My Orders Orders - BRITANY JOHNSON NP Procedure Category Date Status Time Erythrocyte LAB 12/15/24 In Process Sedimentation Rate 12:55 C-Reactive Protein LAB 12/15/24 In Process 12:55 Date of Service: Dec 15, 2024 Billing Provider: BIRTANY JOHNSON NP Common Visit Codes: [id number] INP/OBS CARE(HIGH) BRITANY JOHNSON NP Dec 15, 2024 13:25
[2024-12-15 13:43] LABS: Erythrocyte Sedimentation Rate 2 mm/hr (0-20)
--- NOTE | 2024-12-15 14:04 | DVHINCON2 ---
Date Seen: Dec 15, 2024 Referring Physician JOSE DANIEL Ann Reason for Consultation Chest pain History of Present Illness This is a 29-year-old male patient who presents to emergency room with chief complaint of chest pain. The patient reports that the chest pain initially [place] 12/11/24 [place]. He describes the chest pain as provoked with cough or deep inhalation, intermittent, sharp in nature, midsternal and nonradiating. Chest pain is reproducible upon examination. Patient denies any associated symptoms. Patient reports relief of pain with positional changes. Initial twelve lead electrocardiogram reveals normal sinus rhythm with left ventricular hypertrophy and early repolarization pattern. Serial troponin levels have been negative. The patient denies any previous medical history. Past Medical History Past medical history reviewed. No other significant than mentioned above. Past Surgical History Denies any previous surgical history Family History: Patient reports no known family medical history. Family History Family history reviewed. Social History Denies the use of tobacco, alcohol or illicit drugs. Allergies: Coded Allergies: No Known Drug Allergy (Verified Allergy, Unknown, 06/08/23) Home Meds Active Scripts Pantoprazole Sodium Sesquihydr (Protonix) 40 Mg Tab, 40 MG PO DAILY, #30 TAB Prov:REA CALDERON MD 06/08/23 Ondansetron Odt 4MG Tab (ZOFRAN PO) 4 Mg Tb, 4 MG PO Q8HP PRN for 5 Days, #15 TAB ODT TAB-DISSOLVE IN MOUTH, THEN SWALLOW Prov:REA CALDERON MD 06/08/23 Home Meds Denies taking any prescribed medications Current Medications Current Medications Medications (Trade) Dose Ordered Sig/Kenyatta Route PRN Reason Start Time Stop Time Status Last Admin Aspirin 81 mg DAILY PO 12/15/24 10:00 12/15/24 10:19 Atorvastatin Calcium (Lipitor) 40 mg HS PO 12/14/24 22:00 12/14/24 21:06 Review of Systems Constitutional: No symptom reported Ears, Nose, & Throat: No symptom reported Eyes: No symptom reported Neurological: No symptoms reported Pulmonary/Respiratory: No symptoms reported Cardiovascular: Chest pain Gastrointestinal: No symptom reported Genitourinary: No symptom reported Musculoskeletal: No symptom reported Skin: No symptom reported Psychiatric: No symptom reported Endocrine: No symptom reported Hematologic/Lymphatic: No symptom reported Vital Signs Vital Signs Date Time Temp Pulse Resp B/P (MAP) Pulse Ox O2 Delivery O2 Flow Rate FiO2 12/15/24 08:50 97.9 69 18 120/62 (81) 98 97.9 12/15/24 08:00 Room Air* 0 21 Physical Exam General Appearance: Cooperative. Well-developed. Well-nourished. No acute distress. Pulmonary/Respiratory: Clear, bilateral breaths sounds. Cardiovascular/Chest: Regular rate and rhythm. Peripheral Pulses: 2+ Radial (R). 2+ Radial (L). 2+ Pedal (R). 2+ Pedal (L) Abdominal Exam: Normal bowel sounds. Ankle Exam: Negative ankle edema Lower extremities: Negative lower extremity edema Neuro/Mental Status: A/OX4, coherent. Thoughts/Psych: Normal thought pattern. Appropriate mood and affect. Good judgment and insight. Appearance: No acute distress. Skin Exam: Normal inspection. Normal color. Warm and dry. Labs/Diagnostic Data Labs Test 12/15/24 06:30 12/14/24 17:25 12/14/24 08:08 12/14/24 07:27 Range/Units White Blood Count 6.8 4.4-10.8 10^3/uL Red Blood Count 5.07 4.5-5.90 10^6/uL Hemoglobin 16.3 13.5-17.5 g/dL Hematocrit 47.4 41.0-53.0 % Mean Corpuscular Volume 93.5 80.0-100.0 fL Mean Corpuscular Hemoglobin 32.1 H 28.0-32.0 pg Mean Corpuscular Hemoglobin Concent 34.3 32.0-36.0 g/dL Red Cell Distribution Width 13.3 11.8-14.3 % Platelet Count 305 140-450 10^3/uL Mean Platelet Volume 7.7 6.9-10.8 fL Neutrophils (%) (Auto) 66.0 37.0-80.0 % Lymphocytes (%) (Auto) 22.0 10.0-50.0 % Monocytes (%) (Auto) 10.8 0.0-12.0 % Eosinophils (%) (Auto) 0.7 0.0-7.0 % Basophils (%) (Auto) 0.5 0.0-2.0 % Neutrophils # (Auto) 4.5 1.6-8.6 10 ^3/uL Lymphocytes # (Auto) 1.5 0.4-5.4 10 ^3/uL Monocytes # (Auto) 0.7 0-1.3 10 ^3/uL Eosinophils # (Auto) 0 0-0.8 10 ^3/uL Basophils # (Auto) 0 0-0.2 10 ^3/uL Nucleated Red Blood Cells 0.2 % Erythrocyte Sedimentation Rate 2 0-20 mm/hr Sodium Level 136 136-145 mmol/L Potassium Level 4.1 3.5-5.1 mmol/L Chloride Level 103 98-107 mmol/L Carbon Dioxide Level 25 20-31 mmol/L Anion Gap 8 5-15 Blood Urea Nitrogen 14 9-23 mg/dL Creatinine 1.02 0.700-1.30 mg/dL Glomerular Filtration Rate Calc 103 >90 mL/min BUN/Creatinine Ratio 13.7 10.0-20.0 Serum Glucose 96 74-106 mg/dL Calcium Level 8.8 8.7-10.4 mg/dL Magnesium Level 2.0 1.6-2.6 mg/dL Urine Color Yellow Yellow Urine Clarity Clear Clear Urine pH 6.0 5.0-9.0 Urine Specific [place] 1.032 1.001-1.035 Urine Protein Trace H Negative Urine Ketones 1+ H Negative Urine Blood Negative Negative /uL Urine Nitrite Negative Negative Urine Bilirubin Negative Negative Urine Urobilinogen Normal Negative mg/dL Urine Leukocyte Esterase Negative Negative /uL Urine RBC 2 0 - 3 /hpf Urine Microscopic WBC 3 0-3 /HPF Urine Squamous Epithelial Cells Few <5 /hpf Urine Bacteria None seen None Seen /hpf Urine Mucus Few None Seen Urine Glucose Normal Normal mg/dL Troponin I High Sensitivity 5 </=54 ng/L Triglycerides Level 85 < 150 mg/dL Cholesterol Level 227 H < 200 mg/dL LDL Cholesterol 197 H < 100 mg/dL HDL Cholesterol 31 L 40-59 mg/dL Thyroid Stimulating Hormone (TSH) 2.45 0.55-4.78 uIU/mL Test 12/14/24 05:34 Range/Units D-Dimer, Quantitative 0.24 0.0-0.49 mg/L FEU Hemoglobin A1c 4.9 <5.7 % A1C Total Bilirubin 0.8 0.2-1.0 mg/dL Aspartate Amino Transferase (AST) 31 13-40 U/L Alanine Aminotransferase (ALT) 52 H 7-40 U/L Alkaline Phosphatase 62 46-116 U/L B-Type Natriuretic Peptide 4.05 0-100 pg/mL Total Protein 7.3 5.7-8.2 g/dL Albumin 4.6 3.2-4.8 g/dL Assessment Chest pain, likely pericarditis Dyslipidemia, newly diagnosed Rule out structural heart disease Plan/Recommendation We will continue following plan/recommendations (Dr. Abbott): Case discussed with . We will proceed by obtaining a transthoracic echocardiogram to evaluate cardiac function. Patient's clinical presentation likely in keeping with acute pericarditis. We will initiate the patient on pericarditis treatment plan: Colchicine 0.6 mg orally b.i.d. x 3 months, and ibuprofen 600 mg orally q.8 hours for two weeks. Continue with lipid-lowering agent. Continue with close cardiac surveillance. Thank you for allowing us to care for this patient. Please call with any questions or concerns. Critical care time spent: 44 minutes This medical document was created using an electronic medical record system with voice recognition software and computerized dictation system. Although this document has been carefully reviewed, there might still be some phonetic and typographical errors. Occasional wrong-word or ``sound-alike substitutions may have occurred due to the inherent limitations of voice recognition software. These areas are purely typographical due to imperfections of the software programs and do not reflect any compromise in the patient's medical care. Please read the chart carefully and recognize, using context, where these substitutions have occurred. Plan discussed with: Patient NYHA Physical activity limitations: NA Date of Service: Dec 15, 2024 Billing Provider: JASON QUEEN Cardiology Common Codes: [id number] INP/OBS CARE (High) Cardiology Consultation Codes: [id number] CONSULT <45MIN JASON QUEEN Dec 15, 2024 14:04
[2024-12-15] MEDS: COLCHICINE 0.6 MG CAP PO SCH (14:34)
[2024-12-15] MEDS: KETOROLAC TROMETH 30 MG/ML 1ML VIAL IV ONE (14:46)
[2024-12-15 15:42] LABS: Opiate Scree,Urine Neg (NEGATIVE)
[2024-12-15 15:43] LABS: Amphetamine Screen, Urine Neg (NEGATIVE); Barbiturate Scree,Urine Neg (NEGATIVE); Benzodiazephine Screen, Urine Neg (NEGATIVE); Cannabinoid Screen, Urine Pos (NEGATIVE); Cocaine Screen, Urine Neg (NEGATIVE); Phencyclidine Screen, Urine Neg (NEGATIVE)
[2024-12-15] MEDS: IBUPROFEN 600 MG TAB PO SCH (21:57)
[2024-12-16 01:00] VITALS: BP 128/80; PULSE 60; RESP 17; TEMP 98; O2SAT 97
[2024-12-16 05:00] VITALS: BP 125/72; PULSE 71; RESP 17; TEMP 98.1; O2SAT 99
[2024-12-16 08:00] VITALS: BP 124/58; PULSE 52; PULSE 71; RESP 18; TEMP 98.1; O2SAT 96; O2SAT 98
--- NOTE | 2024-12-16 10:54 | DVHPN2 ---
Consult Progress Note Subjective Patient reports: Feels better Other Systems: Normal sinus rhythm on video producer. Patient denies any chest pain or cardiac symptoms at time of assessment. Objective vital signs Vital Sign Date Time Temp Pulse Resp B/P (MAP) Pulse Ox O2 Delivery O2 Flow Rate FiO2 12/16/24 08:00 98.1 71 18 124/58 (80) 96 98.1 12/15/24 20:00 Room Air* 0 21 Total Intake and Output 12/15/24 12/15/24 12/16/24 14:59 22:59 06:59 Intake Total 750 ml 700 ml Balance 750 ml 700 ml medications Current Medications Medications Dose Ordered Sig/Kenyatta Route Start Time Stop Time Status Last Admin Dose Admin Aspirin 81 mg DAILY PO 12/15/24 10:00 12/16/24 10:05 81 MG Atorvastatin Calcium 40 mg HS PO 12/14/24 22:00 12/15/24 21:57 40 MG Acetaminophen 650 mg Q6HP PRN PO 12/14/24 10:45 12/15/24 00:44 650 MG Ondansetron HCl 4 mg Q4HP PRN IV 12/14/24 10:45 Nitroglycerin 0.4 mg Q5MINP PRN SL 12/14/24 10:45 Morphine Sulfate 2 mg Q30M PRN IV 12/14/24 10:45 Colchicine 0.6 mg Q12HR PO 12/15/24 22:00 12/16/24 10:05 0.6 MG Ibuprofen 600 mg TID PO 12/15/24 22:00 12/16/24 05:48 600 MG Examination: GENERAL:Normal, LUNGS:Normal, CVS:Normal, NEURO:Normal laboratory and microbiology Laboratory Tests 12/15/24 06:30 Test 12/15/24 06:30 Range/Units Serum Glucose 96 74-106 mg/dL Problem List/Assessment/Plan Problem List/Assessment/Plan Chest pain, likely pericarditis Dyslipidemia, newly diagnosed Rule out structural heart disease Plan/Recommendation (Dr. Abbott): Case discussed with . We will proceed by obtaining a transthoracic echocardiogram to evaluate cardiac function. Patient's clinical presentation likely in keeping with acute pericarditis. Continue pericarditis treatment plan: Colchicine 0.6 mg orally b.i.d. x 3 months, and ibuprofen 600 mg orally q.8 hours for two weeks. Continue with lipid-lowering agent. Continue with close cardiac surveillance. In the setting of an unremarkable transthoracic echocardiogram, there is no further inpatient cardiac workup indicated at this time. The patient will need to follow up with Cardiology in the outpatient setting post discharge. Thank you for allowing us to care for this patient. Please call with any questions or concerns. This medical document was created using an electronic medical record system with voice recognition software and computerized dictation system. Although this document has been carefully reviewed, there might still be some phonetic and typographical errors. Occasional wrong-word or ``sound-alike substitutions may have occurred due to the inherent limitations of voice recognition software. These areas are purely typographical due to imperfections of the software programs and do not reflect any compromise in the patient's medical care. Please read the chart carefully and recognize, using context, where these substitutions have occurred. Plan discussed with: Patient Date of Service: Dec 16, 2024 Billing Provider: JASON QUEEN Common Visit Codes: [id number] INP/OBS CARE(HIGH) JASON QUEEN Dec 16, 2024 10:54
[2024-12-16 12:00] VITALS: BP 125/50; PULSE 58; RESP 18; TEMP 97.9; O2SAT 99
[2024-12-16] MEDS ORDERED: IBUP-1454 PO (14:59)
[2024-12-16] MEDS ORDERED: COLC1CAP PO (14:59)
--- NOTE | 2024-12-16 15:06 | DVHDS2 ---
Discharge Summary Date of Admission Dec 14, 2024 at 10:33 Date of Discharge: Dec 16, 2024 Admitting Diagnosis Chest pain Labs/Diagnostic Data: Laboratory Results Test 12/15/24 06:30 12/14/24 17:25 12/14/24 08:08 12/14/24 07:27 White Blood Count 6.8 10^3/uL (4.4-10.8) Red Blood Count 5.07 10^6/uL (4.5-5.90) Hemoglobin 16.3 g/dL (13.5-17.5) Hematocrit 47.4 % (41.0-53.0) Mean Corpuscular Volume 93.5 fL (80.0-100.0) Mean Corpuscular Hemoglobin 32.1 pg (28.0-32.0) Mean Corpuscular Hemoglobin Concent 34.3 g/dL (32.0-36.0) Red Cell Distribution Width 13.3 % (11.8-14.3) Platelet Count 305 10^3/uL (140-450) Mean Platelet Volume 7.7 fL (6.9-10.8) Neutrophils (%) (Auto) 66.0 % (37.0-80.0) Lymphocytes (%) (Auto) 22.0 % (10.0-50.0) Monocytes (%) (Auto) 10.8 % (0.0-12.0) Eosinophils (%) (Auto) 0.7 % (0.0-7.0) Basophils (%) (Auto) 0.5 % (0.0-2.0) Neutrophils # (Auto) 4.5 10 ^3/uL (1.6-8.6) Lymphocytes # (Auto) 1.5 10 ^3/uL (0.4-5.4) Monocytes # (Auto) 0.7 10 ^3/uL (0-1.3) Eosinophils # (Auto) 0 10 ^3/uL (0-0.8) Basophils # (Auto) 0 10 ^3/uL (0-0.2) Nucleated Red Blood Cells 0.2 % Erythrocyte Sedimentation Rate 2 mm/hr (0-20) Sodium Level 136 mmol/L (136-145) Potassium Level 4.1 mmol/L (3.5-5.1) Chloride Level 103 mmol/L (98-107) Carbon Dioxide Level 25 mmol/L (20-31) Anion Gap 8 (5-15) Blood Urea Nitrogen 14 mg/dL (9-23) Creatinine 1.02 mg/dL (0.700-1.30) Glomerular Filtration Rate Calc 103 mL/min (>90) BUN/Creatinine Ratio 13.7 (10.0-20.0) Serum Glucose 96 mg/dL (74-106) Calcium Level 8.8 mg/dL (8.7-10.4) Magnesium Level 2.0 mg/dL (1.6-2.6) C-Reactive Protein High Sensitivity 0.16 mg/dL (<1.0) Urine Color Yellow (Yellow) Urine Clarity Clear (Clear) Urine pH 6.0 (5.0-9.0) Urine Specific [place] 1.032 (1.001-1.035) Urine Protein Trace (Negative) Urine Ketones 1+ (Negative) Urine Blood Negative /uL (Negative) Urine Nitrite Negative (Negative) Urine Bilirubin Negative (Negative) Urine Urobilinogen Normal mg/dL (Negative) Urine Leukocyte Esterase Negative /uL (Negative) Urine RBC 2 /hpf (0 - 3) Urine Microscopic WBC 3 /HPF (0-3) Urine Squamous Epithelial Cells Few /hpf (<5) Urine Bacteria None seen /hpf (None Seen) Urine Mucus Few (None Seen) Urine Glucose Normal mg/dL (Normal) Urine Opiates Screen Neg (NEGATIVE) Urine Fentanyl Screen Neg (NEGATIVE) Urine Barbiturates Screen Neg (NEGATIVE) Urine Phencyclidine Screen Neg (NEGATIVE) Urine Amphetamines Screen Neg (NEGATIVE) Urine Benzodiazepines Screen Neg (NEGATIVE) Urine Cocaine Screen Neg (NEGATIVE) Urine Cannabinoids Screen Pos (NEGATIVE) Troponin I High Sensitivity 5 ng/L (</=54) Triglycerides Level 85 mg/dL (< 150) Cholesterol Level 227 mg/dL (< 200) LDL Cholesterol 197 mg/dL (< 100) HDL Cholesterol 31 mg/dL (40-59) Thyroid Stimulating Hormone (TSH) 2.45 uIU/mL (0.55-4.78) Test 12/14/24 05:34 D-Dimer, Quantitative 0.24 mg/L FEU (0.0-0.49) Hemoglobin A1c 4.9 % A1C (<5.7) Total Bilirubin 0.8 mg/dL (0.2-1.0) Aspartate Amino Transferase (AST) 31 U/L (13-40) Alanine Aminotransferase (ALT) 52 U/L (7-40) Alkaline Phosphatase 62 U/L (46-116) B-Type Natriuretic Peptide 4.05 pg/mL (0-100) Total Protein 7.3 g/dL (5.7-8.2) Albumin 4.6 g/dL (3.2-4.8) Other Laboratory Tests 12/15/24 06:30 Brief Hx & Hospital Course: History of Present Illness Adam Lindsey is a 29-year-old male with no past medical history who reports to the ED with chest pain and with nausea and vomiting x4 days. 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 He states that the pain is 5/10 constant and worse with breathing or coughing. He states that sleeping makes it better. Patient denies any use of drugs, alcohol, or smoking. He denies any recent illnesses, recent sick contacts, recent trauma or injury, fever, chills, lightheadedness, weakness, dizziness, shortness of breath, diarrhea, abdominal pain, or urinary symptoms. Course of hospitalization: Patient had reproducible pain while in the hospital, with a trial of Toradol getting by myself with the patient was pain immediately being resolved. Cardiology consultation was obtained. Echocardiogram was performed. Twelve lead ECG is negative for any ST changes. Troponins have been negative. Patient was noted to have dyslipidemia on lipid profile. Patient will be discharged home today, for which he was agreeable. The patient was states that he does meal prep with a lot of red meat, for which he was instructed to alter his dietary plan and add different protein such as chicken or fish to treat his dyslipidemia before starting statins. Patient will also be discharged home on colchicine for three months as well as ibuprofen for two weeks. Physical examination General: Alert and Oriented x3. No acute distress. Well-nourished. Eyes: EOMI. Anicteric. HENT: Moist mucous membranes. Lungs: Clear to auscultation bilaterally. No accessory muscle use. Cardiovascular: Regular rate and rhythm. No murmur. No JVD. Abdomen: Soft, non-tender and non-distended. No palpable masses. Extremities: No edema. Non-tender. Skin: No rashes or lesions. Warm. Neurologic: No focal neurological deficits. CN II-XII grossly intact, but not individually tested. Psychiatric: Cooperative. Appropriate mood and affect. Total time spent with patient discussing and formulating plan of care: 35 minutes. This medical document was created using an electronic medical record system with [employer] system. Although this document has been carefully reviewed, there may still be some phonetic and typographical errors. These areas are purely typographical due to imperfections of the software programs, and do not reflect any compromise in the patient's medical care. Consults/Reason for consult Cardiology: Chest pain Condition at Discharge: Fair Final Diagnosis/Problems List Chest pain secondary to acute pericarditis Secondary diagnosis: Dyslipidemia Discharge Disposition: Home Discharge Instruct/Medications Diet: Cardiac 2g Na,low cholest Activity: No Restrictions, As Tolerated Medications: Colchicine 0.6 mg p.o. b.i.d. x3 months Ibuprofen 600 mg p.o. t.i.d. for two weeks 36 Discharge Statement: "Patient was advised to return to the ER or call 911 if any headaches, dizziness, shortness of breath, chest pain, abdominal pain, bleeding, fevers, or worsening of medical condition. Patient was counseled about treatment plan, medications, possible side effects, patientverbalized understanding. All questions were answered to the best of my ability. This discharge took greater then 30 minutes in planning, reviewing documentation, counseling the patient, and discussing with other team members." ASSESSMENT ASSESSMENT Assessment Chest pain secondary to acute pericarditis Date of Service: Dec 16, 2024 Billing Provider: BRITANY JOHNSON NP Common Visit Codes: 43314-BHI/OBS DISCH DAY >30min BRITANY JOHNSON NP Dec 16, 2024 15:06
[2024-12-16 16:00] VITALS: BP 128/62; PULSE 75; RESP 18; TEMP 98.2; O2SAT 98
[2024-12-16 16:23] VITALS: BP 125/50; PULSE 58; RESP 18; TEMP 36.6; O2SAT 99
--- NOTE | 2024-12-17 14:41 | DVHSR ---
APPROVED REPORT EXAM: Two-dimensional and M-mode echocardiogram with Doppler and color Doppler. Blood Pressure: 160/66 mmHg INDICATION Chest Pain RISK FACTORS Height: 6'2", Weight: 185 DIMENSIONS LVDd5.3 (3.8-5.7cm)LA (2D)4.3 (1.9-4.0cm)Aortic Root3.2 (2.0-3.7cm) LVDs3.8 (2.5-4.0cm)LA (MM) (1.9-4.0cm)Aortic Cusp Exc2.1 (1.5-2.0cm) EF (%) 60.0 (55-70%)Rt. Atrium4.9 (1.9-4.0cm)Asc. Aorta cm IVSd1.0 (0.7-1.1cm)RV (D)4.5 (1.8-2.4cm) PWd1.1 (0.7-1.1cm) Mitral Valve MitralMitral Stenosis E wave1.05m/sMV Mean GR.mmHg A wave0.63m/sMV Peak GR.mmHg E/A ratio1.72D MVAcm2 DECEL [id number] 1/2 [place] Aortic Valve Aortic ValveAortic Stenosis V11.20m/Jamari Mean GR.6mmHg V21.81m/Jamari Peak GR.13mmHg LVOT Diameter2.1 (1.8-2.4cm)Doppler AVA2.30cm2 Pulmonic Valve V21.40m/s Tricuspid Valve TR Velocity2.92m/s [id number] Conclusion lvef appears borderline, lvef 50-55% normal rv function normal atria no severe valve abnormalities noted
== END 2024-12-16 18:36 | disposition home or self-care (01) | DRG 316 ==
LOC: ER 05:20 → OVERFLOW 10:33 → TELE-WESTW 10:35
PROVIDERS: ADMIT Nurse Practitioner Acute Care; ATTEND Nurse Practitioner Acute Care
DX: I30.9 Acute pericarditis, unspecified (principal); E78.5 Hyperlipidemia, unspecified; Z79.899 Other long term (current) drug therapy
CPT/HCPCS: 36415; 71045; 80048; 80053; 80061; 80307; 81001; 83036; 83735; 83880; 84443; 84484; 85025; 85379; 85652; 86141; 93005; 93306; G0378; J1885